=== PATIENT | female | born 1995 | race Asian ===

== ENCOUNTER 2016-10-12 19:21 | Observation (INO) | payer MEDICAID ==
[~2016-10-12] VITALS: Ht 170.2 cm; Wt 123.0 kg
== END 2016-10-12 21:46 | disposition home or self-care (01) ==
LOC: LDOP 19:21 → LDIP 19:28 → 2NE 19:38
PROVIDERS: ADMIT Obstetrics & Gynecology; ATTEND Obstetrics & Gynecology
DX: O9A.213 Injury, poisoning and certain other consequences of external causes complicating pregnancy, third trimester (principal); S90.512A Abrasion, left ankle, initial encounter; O99.013 Anemia complicating pregnancy, third trimester; Z3A.29 29 weeks gestation of pregnancy; W01.0XXA Fall on same level from slipping, tripping and stumbling without subsequent striking against object, initial encounter; Y93.89 Activity, other specified; Y92.89 Other specified places as the place of occurrence of the external cause; Y99.8 Other external cause status
CPT/HCPCS: 59025; G0378; G0379-25

== ENCOUNTER 2016-10-20 02:30 | Outpatient (CLI) | payer MEDICAID ==
[~2016-10-20] VITALS: Ht 170.2 cm; Wt 109.0 kg
== END 2016-10-20 03:30 | disposition home or self-care (01) ==
LOC: LDOP 02:30
PROVIDERS: ATTEND Obstetrics & Gynecology
DX: O26.893 Other specified pregnancy related conditions, third trimester (principal); O99.333 Smoking (tobacco) complicating pregnancy, third trimester; F17.200 Nicotine dependence, unspecified, uncomplicated; R10.2 Pelvic and perineal pain; R10.9 Unspecified abdominal pain; Z3A.29 29 weeks gestation of pregnancy
CPT/HCPCS: 59025; 81001; 87086; 99211; G0463